=== PATIENT | male | born 1980 | race Caucasian/White ===

== ENCOUNTER 2016-11-18 01:35 | Emergency (ER) | payer SELFPAY ==
[~2016-11-18] VITALS: Ht 172.7 cm; Wt 85.0 kg
[2016-11-18 01:40] VITALS: Ht 172.7 cm; Wt 85.0 kg
[2016-11-18] MEDS ORDERED: IBUPROFEN 600 MG TAB PO ONE (07:30)
--- NOTE | 2016-11-18 07:32 | RADRPT ---
PROCEDURE: XR right fifth toe CLINICAL INDICATION: Status post fall. Pain. TECHNIQUE: 3 views of the right fifth toe are provided for review COMPARISON: No prior studies are available for comparison. FINDINGS: There is a mildly displaced fracture of the fifth proximal phalanx. There is also likely a minimally displaced fracture of the fifth distal phalanx. There is associated soft tissue swelling of the fif th digit. Alignment remains grossly intact. IMPRESSION: 1. Mildly displaced fracture of the fifth proximal phalanx and probable additional fracture of the fifth distal phalanx. RPTAT: HJBF .Chato Rosario MD, MD Date Time Electronically viewed and signed by .Chato Rosario MD, on 11/18/2016 07:32 .B/
[2016-11-18] MEDS ORDERED: IBUP-1542 PO (08:13)
[2016-11-18 08:32] VITALS: BP 120/71; PULSE 79; RESP 18
--- NOTE | 2016-11-19 16:01 | ERD ---
ER Documentation Chief Complaint Date/Time DATE: 11/19/16 TIME: 15:53 Chief Complaint r pinky toe hit on corner of wall HPI 36-year-old male complaining of right fifth toe pain. Patient stated that he was running after his son at home last night, and hit his foot on the corner of the wall. He noticed that his right pinky toe was bent outwards after the injury. He pulled it back in place. He had been taping and icing it since. Complaining of throbbing aching pain. Denies any other injuries. ROS All systems reviewed and are negative except as per history of present illness. Medications Home Meds Active Scripts Ibuprofen* (Motrin*) 600 Mg Tab, 600 MG PO Q6H Y for PAIN AND OR ELEVATED TEMP, #30 TAB Prov:LANA VALLECILLO. [employer] ASSISTANT [employer]ANT MANAGER 11/18/16 Allergies Allergies: Coded Allergies: No Known Allergy (Unverified , 11/18/16) PMhx/Soc Medical and Surgical Hx: pt denies Medical Hx, pt denies Surgical Hx Hx Alcohol Use: No Hx Substance Use: No Hx Tobacco Use: No Smoking Status: Never smoker Physical Exam Vitals Vital Signs Date Time Temp Pulse Resp B/P Pulse Ox O2 Delivery O2 Flow Rate FiO2 11/18/16 08:32 79 18 120/71 97 Room Air 11/18/16 01:40 98.3 87 18 119/73 97 Physical Exam General: Well-developed, well-nourished, conscious and coherent, in no distress Skin: Warm and dry without rash, good texture and turgor Head: Normocephalic without evidence of trauma Eyes: Sclera and conjunctivae normal; pupils equal, round, and reactive to light; extraocular movements are intact Neck: Supple without meningismus or adenopathy. Carotids are equal. Trachea midline. No bruits or JVD Chest: Normal AP diameter. Good expansion without retractions. Nontender. Lungs are clear to auscultate bilaterally with good tidal volume Heart: Regular rate and rhythm. No murmur, rub, or gallops heard Extremities: Ecchymosis noted on the right fifth toe, along the proximal phalanx, tender to palpation. Reduced range of motion of the said toe. Full range of motion otherwise. Good strength bilaterally. No clubbing, cyanosis, or edema. Peripheral pulses are intact. Sensation intact Neuro: Alert and oriented 4, GCS 15. Cranial nerves grossly intact. Motor and sensory exams nonfocal. Moves all extremities. Speech clear. Gait normal Results 24 hrs Current Medications Medications (Trade) Dose Ordered Sig/Ritchie Route PRN Reason Start Time Stop Time Status Last Admin Dose Admin Ibuprofen (Motrin) 600 mg ONCE ONCE PO 11/18/16 07:30 11/18/16 07:31 DC 11/18/16 07:30 PROCEDURE: XR right fifth toe CLINICAL INDICATION: Status post fall. Pain. TECHNIQUE: 3 views of the right fifth toe are provided for review COMPARISON: No prior studies are available for comparison. FINDINGS: There is a mildly displaced fracture of the fifth proximal phalanx. There is also likely a minimally displaced fracture of the fifth distal phalanx. There is associated soft tissue swelling of the fifth digit. Alignment remains grossly intact. IMPRESSION: 1. Mildly displaced fracture of the fifth proximal phalanx and probable additional fracture of the fifth distal phalanx. RPTAT: HJBF .Chato Rosario MD, Date Time Electronically viewed and signed by .Chato Rosario MD, MD on 2016 07:32 .B/ CC: LANA VALLECILLO [employer] ASSISTANT RESTAURANT MANAGER Procedures/MDM Well-appearing 28-year-old male presented ED with pain in the right fifth toe after trauma yesterday. X-ray showed mildly displaced fracture of the fifth proximal phalanx and probable additional fracture of the fifth distal phalanx. The area of injury was immobilized with a quang tape splint. Patient also provided ortho shoe. Patient was noted to be comfortable and neurovascularly intact both before and after the immobilization. Patient advised to follow-up with PCP for orthopedic referral. Patient appears well, stable for discharge and outpatient management. Medical decision making shared with patient and family. Education provided to patient and family. Patient and family expressed understanding of the plan. Medications on discharge: Ibuprofen, Valmora. Follow-up: Primary care provider in 2-3 days or return to ED if worse. Disclaimer: Inadvertent spelling and grammatical errors are likely due to EHR/ dictation software use and do not reflect on the overall quality of patient care. Also, please note that the electronic time recorded on this note does not necessarily reflect the actual time of the patient encounter. Departure Diagnosis: Primary Impression: Fracture of fifth toe, right, closed Condition: Stable Patient Instructions: Fracture, Toe [Closed] Referrals: [facility] YOU HAVE RECEIVED A MEDICAL SCREENING EXAM AND THE RESULTS INDICATE THAT YOU DO NOT HAVE A CONDITION THAT REQUIRES URGENT TREATMENT IN THE EMERGENCY DEPARTMENT. FURTHER EVALUATION AND TREATMENT OF YOUR CONDITION CAN WAIT UNTIL YOU ARE SEEN IN YOUR DOCTORS OFFICE WITHIN THE NEXT 1-2 DAYS. IT IS YOUR RESPONSIBILITY TO MAKE AN APPOINTMENT FOR FOLOW-UP CARE. IF YOU HAVE A PRIMARY DOCTOR --you should call your primary doctor and schedule an appointment IF YOU DO NOT HAVE A PRIMARY DOCTOR YOU CAN CALL OUR PHYSICIAN REFERRAL HOTLINE AT IF YOU CAN NOT AFFORD TO SEE A PHYSICIAN YOU CAN CHOSE FROM THE FOLLOWING [facility] [address] [facility] [address] [facility] [address] [facility] [address] [facility] [address] [facility]. [facility]. [address] Additional Instructions: Call your primary care doctor TOMORROW for an appointment during the next 1 WEEK.Tell the secretary receptionist that you were referred from this facility.See the doctor sooner or return here if your condition worsens before your appointment time. LANA VALLECILLO NP Nov 19, 2016 16:01
== END 2016-11-18 08:34 | disposition home or self-care (01) ==
LOC: FTE 01:35
DX: S92.511A Displaced fracture of proximal phalanx of right lesser toe(s), initial encounter for closed fracture (principal); W22.8XXA Striking against or struck by other objects, initial encounter; Y92.009 Unspecified place in unspecified non-institutional (private) residence as the place of occurrence of the external cause
CPT/HCPCS: 73660